=== PATIENT | male | born 1965 | race Asian ===

== ENCOUNTER 2023-08-15 08:36 | Outpatient (CLI) | payer BC ==
[2023-08-15] MEDS ORDERED: Iopamidol 300 61% 100 ML VIAL FS ONE (09:02)
== END 2023-08-15 08:37 | disposition home or self-care (01) ==
LOC: CSHCT 08:36
PROVIDERS: ATTEND Otolaryngology
DX: K11.20 Sialoadenitis, unspecified (principal); K11.1 Hypertrophy of salivary gland; K11.8 Other diseases of salivary glands
CPT/HCPCS: 70491

== ENCOUNTER 2023-09-25 09:49 | Day surgery (SDC) | payer BC ==
[2023-09-25] MEDS ORDERED: Sodium Bicarbonate 2.5 MEQ/5 ML SDV ONE (10:14)
[2023-09-25] MEDS ORDERED: Lidocaine 1% PF 5 ML VIAL ONE (10:14)
== END 2023-09-25 11:06 | disposition home or self-care (01) ==
LOC: CSHULT 09:49
PROVIDERS: ATTEND Otolaryngology
PROC: 0WB63ZX Excision of Neck, Percutaneous Approach, Diagnostic (ICD-10-PCS; principal; 2023-09-25)
DX: D11.0 Benign neoplasm of parotid gland (principal); K11.20 Sialoadenitis, unspecified
CPT/HCPCS: 10005; 88305; 88341; 88342

== ENCOUNTER 2023-09-27 12:29 | Outpatient (CLI) | payer BC | END 2023-09-27 12:30 | disposition home or self-care (01) | LOC: CSHMRI 12:29 | PROVIDERS: ATTEND Otolaryngology | DX: K11.20 Sialoadenitis, unspecified (principal); K11.9 Disease of salivary gland, unspecified | CPT/HCPCS: 70543 ==

== ENCOUNTER 2023-11-08 08:45 | Outpatient (CLI) | payer BC | END 2023-11-08 08:46 | disposition home or self-care (01) | LOC: CSHLAB 08:45 | PROVIDERS: ATTEND Otolaryngology | DX: Z01.818 Encounter for other preprocedural examination (principal); D11.0 Benign neoplasm of parotid gland | CPT/HCPCS: 93005; 93010 ==